=== PATIENT | male | born 1945 | race Hispanic/Latino ===

== ENCOUNTER 2018-10-22 08:30 | Observation (INO) | payer MEDICARE, OTHER ==
--- NOTE | 2018-10-22 09:21 | Emergency Department Report ---
HPI - General Chief Complaint: GI Bleed Time Seen by Provider: 10/22/18 08:54 - HPI HPI: 73-year-old -Macanese male presents to the emergency department from home with a complaint of rectal bleeding. The patient has a past medical history of hypertension, kui-xysseaj-szaglpaop diabetes and has a history of diverticulosis with previous GI bleeds. The patient was here last week for this rectal bleeding. At first he was going to be taken by IR embolization of a bleed suspected at the ileocolic region but the bleeding had stopped at that point. He then went for a colonoscopy with polypectomy. He was discharged home about 3 days ago and told to return to the emergency department with any return of his rectal bleeding. He denies any fever, abdominal pain, rectal pain. He has not taken anything for her symptoms prior to presentation. He goes to [facility] for PCP and follows with [facility]. ED Past Medical Hx - Past Medical History Previous Medical History?: Yes Hx Hypertension: Yes Hx CVA: Yes (1997, erectile dysfunction his only deficit) Hx Congestive Heart Failure: No Hx Diabetes: Yes (diet controlled at this time) Hx Pulmonary Embolism: No Hx Liver Disease: No Hx Renal Disease: Yes (chronic renal insufficiency) Hx Sickle Cell Disease: No Hx Arthritis: No Hx Seizures: No Hx Kidney Stones: No Hx Psychiatric Treatment: No Hx Asthma: No Hx Tuberculosis: No Additional medical history: Enlarged prostate - Surgical History Additional Surgical History: neck surgery 1988, back surgery - Social History Smoking Status: Former Smoker - Medications Home Medications: Home Medications Medication Instructions Recorded Confirmed Last Taken Type Atenolol/Chlorthalidone [Tenoretic 1 tab PO QDAY 07/18/16 10/17/18 07/17/16 History 100-25] Lisinopril [Zestril TAB] 40 mg PO QDAY 07/18/16 10/17/18 07/17/16 History Multivitamin Tab [Multiple Vitamin 1 each PO QDAY 07/18/16 10/17/18 07/17/16 History TAB (Theragran)] NIFEdipine XL [Procardia Xl] 90 mg PO QDAY 07/18/16 10/17/18 07/17/16 History Ferrous Gluconate [Ferrous 324 mg PO BID #60 tablet 10/20/18 Unknown Rx Gluconate 324 MG] ED Review of Systems ROS: Stated complaint: BLOOD IN STOOL Other details as noted in HPI Comment: All other systems reviewed and negative Constitutional: denies: chills, fever Eyes: denies: eye pain, vision change ENT: denies: ear pain, throat pain Respiratory: denies: cough, shortness of breath Cardiovascular: denies: chest pain, palpitations Gastrointestinal: other (rectal bleeding). denies: vomiting Genitourinary: denies: dysuria, discharge Musculoskeletal: denies: back pain, arthralgia Skin: denies: rash, lesions Neurological: denies: headache, weakness Physical Exam - Physical Exam Vital Signs: Vital Signs 10/22/18 08:44 Temperature 98.4 F Pulse Rate 82 Respiratory 16 Rate Blood Pressure 154/88 O2 Sat by Pulse 98 Oximetry Physical Exam: GENERAL: The patient is well-developed well-nourished. HENT: Normocephalic. Atraumatic. Patient has moist mucous membranes. EYES: Extraocular motions are intact. NECK: Supple. Trachea is midline. CHEST/LUNGS: Clear to auscultation. There is no respiratory distress noted. HEART/CARDIOVASCULAR: Regular. There is no tachycardia. There is no murmur. ABDOMEN: Abdomen is soft, nontender. Patient has normal bowel sounds. There is no abdominal distention. SKIN: Skin is warm and dry. NEURO: The patient is awake, alert, and oriented. The patient is cooperative. The patient has no focal neurologic deficits. The patient has normal speech. MUSCULOSKELETAL: There is no tenderness or deformity. There is no evidence of acute injury. RECTAL: No visible external lesions or hemorrhoids. There is gross blood that is also positive on guaiac testing. ED Course Vital Signs 10/22/18 08:44 Temperature 98.4 F Pulse Rate 82 Respiratory 16 Rate Blood Pressure 154/88 O2 Sat by Pulse 98 Oximetry - Consultations Consultation #1: 10/22/18 11:15 I spoke with the field servicer program professional for [facility], Dr. Tong, who recommends the patient be admitted for an observational stay to start secondary to a return of his rectal bleeding with his recent history. They will be happy to see the patient has a consult. ED Medical Decision Making - Lab Data Result diagrams: 10/22/18 09:48 10/22/18 09:48 - Medical Decision Making Patient presents with one episode of rectal bleeding a few days ago and another prior to arrival this morning. He has a history of diverticular bleeds and was recently here for possible embolization and had a colonoscopy. His hemoglobin today is 10.7. He has some chronic kidney disease that appears consistent with previous visits. Vital signs stable. I spoke with GI who recommends observational stay. Patient accepted for admission by the hospitalist service. - Differential Diagnosis diverticulosis, malignancy, hemorrhoids, ulcer Critical Care Time: No Critical care attestation.: If time is entered above; I have spent that time in minutes in the direct care of this critically ill patient, excluding procedure time. ED Disposition Clinical Impression: GI bleed Qualifiers: GI bleed type/associated pathology: unspecified gastrointestinal hemorrhage type Qualified Code(s): K92.2 - Gastrointestinal hemorrhage, unspecified HTN (hypertension) Qualifiers: Hypertension type: essential hypertension Qualified Code(s): I10 - Essential (primary) hypertension Disposition: -09 OP ADMIT IP TO THIS HOSP Is pt being admited?: Yes Condition: Fair Instructions: Hypertension (ED) Referrals: ALFREDITO DOMINGUEZ MD [Primary Care Provider] - 3-5 Days Forms: Accompanied Note Time of Disposition: 10:35
[2018-10-22 10:11] LABS: Basophils # (Auto) 0.1 K/mm3 (0.0-0.1); Basophils % (Auto) 1.2 % (0.0-1.8); Eosinophils # (Auto) 0.2 K/mm3 (0.0-0.4); Eosinophils % (Auto) 2.7 % (0.0-4.3); Hematocrit 31.1 % (35.5-45.6); Hemoglobin 10.7 gm/dl (11.8-15.2); Lymphocytes # (Auto) 1.8 K/mm3 (1.2-5.4); Lymphocytes % (Auto) 27.7 % (13.4-35.0); Mean Corpuscular HGB Conc 34 % (32-34); Mean Corpuscular Volume 85 fl (84-94); Monocytes # (Auto) 0.5 K/mm3 (0.0-0.8); Monocytes % (Auto) 7.4 % (0.0-7.3); Platelet Count 261 K/mm3 (140-440); Red Blood Count 3.65 M/mm3 (3.65-5.03); Red Cell Distribution Width 17.6 % (13.2-15.2)
[2018-10-22 10:22] LABS: INR 0.91 (0.87-1.13)
[2018-10-22 10:23] LABS: Partial Thromboplastin Time 29.2 Sec. (24.2-36.6)
[2018-10-22 10:31] LABS: Albumin 3.6 g/dL (3.9-5); Calcium 8.5 mg/dL (8.4-10.2)
--- NOTE | 2018-10-22 10:38 | History and Physical Report ---
History of Present Illness Date of examination: 10/22/18 Date of admission: 10/22/18 Chief complaint: rectal bleed History of present illness: 73-year-old -English male with h/o past medical history of hypertension, [id number]-mdujoqdpm diabetes and has a history of diverticulosis with previous GI bleeds presents to the emergency department from home with a complaint of rectal bleeding. The patient was here last week for this rectal bleeding and was going to be taken by IR embolization of a bleed suspected at the ileocolic region but the bleeding had stopped at that point. He was then went for a colonoscopy with polypectomy was discharged home. Today he came back as he noticed gross blood with stool, H/H in the ER stable. He denies any fever, abdo lisa pain, rectal pain. he being admitted for further evaluation and management. Past History Past Medical History: diabetes, hypertension, stroke Past Surgical History: Other (Neck surgery, back surgery, hemorrhoidectomy) Social history: . denies: smoking, alcohol abuse, prescription drug abuse Family history: diabetes, hypertension Review of Systems Constitutional: no weight loss, no weight gain, no fever, no chills Ears, nose, mouth and throat: no ear pain, no ear discharge, no decreased hearing, no nose pain Cardiovascular: no chest pain, no orthopnea, no palpitations, no edema, no syncope, no lightheadedness, no shortness of breath Respiratory: no cough, no cough with sputum, no excessive sputum, no hemoptysis, no shortness of breath Gastrointestinal: BRBPR, no abdominal pain, no nausea, no vomiting, no diarrhea, no early satiety, no heartburn, no indigestion Genitourinary Male: no hematuria, no flank pain, no discharge, no urinary frequency, no urinary hesitancy Rectal: no pain, no incontinence, no itching, no hemorrhoids Musculoskeletal: no neck stiffness, no neck pain, no shooting arm pain, no arm numbness/tingling, no low back pain, no shooting leg pain Integumentary: no rash, no pruritis, no redness Neurological: no head injury, no transient paralysis, no paralysis, no weakness, no tingling Psychiatric: no anxiety, no memory loss, no change in sleep habits, no sleep disturbances, no insomnia, no hypersomnia, no change in appetite, no change in libido, no suicidal ideation Endocrine: no cold intolerance, no heat intolerance, no polyphagia, no excessive thirst, no polydipsia, no polyuria, no excessive sweating Hematologic/Lymphatic: no easy bruising, no easy bleeding, no lymphedema Allergic/Immunologic: no urticaria, no wheezing, no persistent infections, no anaphylaxis, no angioedema Medications and Allergies Allergies Allergy/AdvReac Type Severity Reaction Status Date / Time No Known Allergies Allergy Verified 10/22/18 08:51 Home Medications Medication Instructions Recorded Confirmed Last Taken Type Multivitamin Tab [Multiple Vitamin 1 each PO QDAY 07/18/16 10/22/18 10/21/18 09:00 History TAB (Theragran)] Ferrous Gluconate [Ferrous 324 mg PO BID #60 tablet 10/20/18 10/22/18 10/21/18 09:00 Rx Gluconate 324 MG] Pantoprazole [Protonix] 40 mg PO QDAY #30 tablet 10/23/18 Unknown Rx Exam - Physical Exam Narrative exam: General appearance: Present: mild distress - EENT Eyes: Present: PERRL ENT: hearing intact, clear oral mucosa - Neck Neck: Present: supple, normal ROM - Respiratory Respiratory effort: normal Respiratory: bilateral: CTA - Cardiovascular Heart Sounds: Present: S1 & S2. Absent: rub, click - Extremities Extremities: pulses symmetrical, No edema Peripheral Pulses: within normal limits - Abdominal General gastrointestinal: Present: soft, non-tender, non-distended, normal bowel sounds Male genitourinary: Present: normal - Integumentary Integumentary: Present: clear, warm, dry - Musculoskeletal Musculoskeletal: gait normal, strength equal bilaterally - Psychiatric Psychiatric: appropriate mood/affect, intact judgment & insight - Neurologic Neurologic: CNII-XII intact, moves all extremities - Constitutional Vitals: Temp Pulse Resp BP Pulse Ox 98.4 F 82 16 154/88 98 10/22/18 08:44 10/22/18 08:44 10/22/18 08:44 10/22/18 08:44 10/22/18 08:44 Results - Labs CBC & Chem 7: 10/23/18 07:08 10/23/18 07:08 Labs: Abnormal lab results 10/22/18 10/22/18 Range/Units 09:48 09:48 Hgb 10.7 L (11.8-15.2) gm/dl Hct 31.1 L (35.5-45.6) % RDW 17.6 H (13.2-15.2) % Eaton % (Auto) 7.4 H (0.0-7.3) % Creatinine 1.6 H (0.8-1.5) mg/dL Glucose 110 H (75-100) mg/dL Albumin 3.6 L (3.9-5) g/dL Assessment and Plan /Acute GI bleed: Admit to medicine, GI Bleeding protocol: ppi therapy, serial CBC, HGB stable at this time, no transfusion at this time, GI consulted in ED, Endoscopy as per GI team, follow CT Angio Abdomen/Pelvis, hold aspirin/nsaid therpay / HTN (hypertension) monitor bp q shift, IV hydralazine prn, supportive care. hold home BP meds / Diabetes, diet controlled SSI insulin, accu check q6h /Anemia with Fe deficiency monitor H/h, replete Fe / DVT prophylaxis SCD to BLE while in bed, Radiology data: CTA abdomen/pelvis: No contrast extravasation seen on CT imaging to indicate active bleeding. Aortoiliac atherosclerotic disease. No aneurysm or significant branch vessel stenosis seen. Unchanged diverticulosis. No diverticulitis. Unchanged fat-containing inguinal hernia is a small bowel containing tiny umbilical hernia.
[2018-10-22] MEDS ORDERED: MORPHINE IV PRN (10:39)
[2018-10-22] MEDS ORDERED: ZOFRAN IV PRN (10:39)
[2018-10-22] MEDS ORDERED: TYLENOL PO PRN (10:39)
[2018-10-22] MEDS ORDERED: SODIUM CHLORIDE FLUSH SYRINGE 10 ML IV PRN (10:39)
[2018-10-22] MEDS ORDERED: D5NS 1,000 ML IV SCH (11:00)
[2018-10-22] MEDS: PEPCID IV SCH ×2 (11:43→21:19)
--- NOTE | 2018-10-22 13:59 | Cat Scan Report ---
PROCEDURE: CT ANGIO ABDOMEN PELVIS TECHNIQUE: CT angiography of the abdomen and pelvis performed. Images were obtained after administra tion of IV contrast. Axial images and coronal and sagittal reformatted images were obtained. HISTORY: gi bleed COMPARISON: 10/17/2018 FINDINGS: There is some atelectasis at the left base which is unchanged. The visualized spleen, pancreas, adrenal glands and kidneys demonstrate no significant abnormality. There is mild fatty infiltration of the liver. There are multiple renal cysts. There are aortoiliac atherosclerotic calcifications. There is no abdominal aortic aneurysm. There are atherosclerotic calcifications at celiac, SMA and left renal artery origins. No significant stenosis seen, however. There is no contrast extravasation seen within bowel or colon. There is diverticulosis throughout the colon. There is no diverticulitis seen. The appendix is normal. Bladder is unremarkable. There are unchanged fat-containing inguinal hernias bilaterally. Minimal umbilical hernia with small bowel unchanged and not causing obstruction. There are lumbar degenerative changes postoperative changes. IMPRESSION: No contrast extravasation seen on CT imaging to indicate active bleeding. Aortoiliac atherosclerotic disease. No aneurysm or significant branch vessel stenosis seen. Unchanged diverticulosis. No diverticulitis. Unchanged fat-containing inguinal hernia is a small bowel containing tiny umbilical hernia. This document is electronically signed by Sharda Benito MD., Oct 22 2018 01:57:23 PM ET
[2018-10-22 15:11] LABS: Hematocrit 33.2 % (35.5-45.6); Hemoglobin 11.1 gm/dl (11.8-15.2)
--- NOTE | 2018-10-22 18:55 | Consultation ---
REFERRING PHYSICIAN: Opal Riojas MD INDICATION: 1. Anemia. 2. Gastrointestinal bleed. HISTORY OF PRESENT ILLNESS: The patient is a 73-year-old black male presents with GI bleed. The patient had a recent admission when he presented for GI bleed. It was felt the bleeding was from the ileocolonic region and attempted IR embolization, failed as the patient had stopped at the time of that procedure. The patient subsequently had a colonoscopy approximately 5 days ago with polypectomy and old blood, but no obvious signs of active bleeding. The patient subsequently was discharged 3 days ago. The patient presents now with reported two dark bloody stools over the last 2-3 hours. He reports no hematemesis. Denies any NSAIDs or aspirin. The patient was evaluated in the Emergency Room where he was noted to have heme positive maroon stool and subsequently admitted and GI consulted. The patient denies any other specific problems or complaints. PAST MEDICAL HISTORY: 1. Hypertension. 2. High cholesterol. MEDICATIONS: Reviewed and updated in chart. ALLERGIES: No known drug allergies. SOCIAL HISTORY: Denies alcohol, tobacco or drug abuse. FAMILY HISTORY: Negative for colon cancer, IBD, or liver disease. REVIEW OF SYSTEMS: GENERAL: Reports mild weakness. HEENT: No visual complaints or tinnitus. PULMONARY: No shortness of breath. No cough. No chest pain. GASTROINTESTINAL: Reports rectal bleeding. All points of 13-point review of systems otherwise negative. PHYSICAL EXAMINATION: VITAL SIGNS: Temperature of 98.5, pulse 65, respiration 18, blood pressure 152/82. GENERAL: Fairly nourished male, in no acute distress. HEENT: Pupils equal, round and reactive. PULMONARY: Clear to auscultation bilaterally. CARDIOVASCULAR: Regular rhythm. Normal S1, S2. ABDOMEN: Positive bowel sounds, soft. SKIN: No obvious rashes. LABORATORY DATA: Pertinent for white count of 6.5, hemoglobin and hematocrit of 10.7 and 31.1, platelet count of 261. Coags within normal limits. Chem-7 within normal limits except for creatinine of 1.6. LFTs within normal limits. ASSESSMENT AND PLAN: A 73-year-old male, recent admission for what was felt to be a probable right-sided diverticular bleed. We fail angio and then colonoscopy with polyp removal, but no obvious bleeding at that time. The patient was discharged 3 days ago, now presents with 2-3 hours of 2 bouts of dark stool. The patient's H and H have dropped slightly from 11 when he was recently discharged and now it is 10.7. He reports no bleeding at this time. Management is noted below. PLAN: 1. We will follow hematocrit and transfuse as needed. 2. Clear liquid diet now with plans to advance based on progress. 3. CTA now to rule out active bleeding. 4. No plans for repeat colonoscopy at this time. 5. We will follow further recommendation based on progress. JOB# [id number] CAB/NTS
[2018-10-22] MEDS: SODIUM CHLORIDE FLUSH SYRINGE 10 ML IV SCH (21:21)
[2018-10-22 21:35] LABS: Hematocrit 29.4 % (35.5-45.6); Hemoglobin 10.2 gm/dl (11.8-15.2)
[2018-10-23 07:55] LABS: Basophils % (Auto) 0.4 % (0.0-1.8); Eosinophils # (Auto) 0.1 K/mm3 (0.0-0.4); Eosinophils % (Auto) 2.1 % (0.0-4.3); Hemoglobin 11.5 gm/dl (11.8-15.2); Lymphocytes # (Auto) 2.3 K/mm3 (1.2-5.4); Lymphocytes % (Auto) 32.5 % (13.4-35.0); Mean Corpuscular HGB Conc 35 % (32-34); Mean Corpuscular Volume 83 fl (84-94); Monocytes # (Auto) 0.5 K/mm3 (0.0-0.8); Monocytes % (Auto) 7.2 % (0.0-7.3); Platelet Count 295 K/mm3 (140-440); Red Blood Count 3.99 M/mm3 (3.65-5.03); Red Cell Distribution Width 17.5 % (13.2-15.2)
[2018-10-23 08:17] LABS: Calcium 9.1 mg/dL (8.4-10.2)
[2018-10-23] MEDS: SODIUM CHLORIDE FLUSH SYRINGE 10 ML IV SCH (09:13)
[2018-10-23] MEDS: PEPCID IV SCH (09:14)
--- NOTE | 2018-10-23 11:05 | Gastroenterology Progress Note ---
Assessment and Plan 1.recurrent LGIB -H/H 11.5/33.0-trending up -no active signs of bleeding -CTA 10/17 showed cecal extravasation from right sided diverticulosis with attempted embolization by IR, however the bleeding stopped and embolization could not be completed -repeat CTA yesterday did not show active bleeding -s/p colonoscopy 10/19 that revealed: Few small diverticula in the terminal ileum with no blood seen in the TI * Moderate amount of dark red blood throughout the proximal and mid colon (it was not in the rectum or sigmoid colon at the start of the procedure). No active bleeding * Scattered diverticulosis in the ascending, transverse, descending/sigmoid colon * 5mm sessile polyp in the cecum by the IC valve, removed with cold snare polypectomy * Enlarged/lipomatous IC valve, biopsied * 2mm sessile polyp in the ascending colon, removed with removed with cold biopsy polypectomy * 2 polyps in the descending colon, semi-sessile, 3mm and 5mm in size, removed with cold snare polypectomy * No other abnormalities seen, though blood limited views -etiology-most likely diverticular in nature -clinically, patient is stable. Denies abd pain or N/V. -okay to resume diet -continue PPI and supportive care -if no further bleeding, patient okay to be d/c per GI standpoint with f/u in clinic in ~2 weeks -If active re-bleed then recall IR for another attempted embolization -will sign off, please call if needed Subjective Date of service: 10/23/18 Principal diagnosis: rectal bleeding Interval history: Patient resting in bed this am w/o acute distress. No active signs of bleeding overnight or this am. States he had a BM this am with a small amount of dark old blood. Denies abd pain or N/V. Objective - Constitutional Vitals: Temp Pulse Resp BP Pulse Ox 97.8 F 63 18 142/77 98 10/23/18 07:36 10/23/18 07:36 10/23/18 07:36 10/23/18 07:36 10/23/18 07:36 General appearance: no acute distress - Respiratory Respiratory: bilateral: CTA - Cardiovascular Rhythm: regular - Gastrointestinal General gastrointestinal: Present: soft, non-tender, non-distended, normal bowel sounds - Neurologic Neurological: alert and oriented x3 - Labs CBC & Chem 7: 10/23/18 07:08 10/23/18 07:08 Labs: Laboratory Results - last 24 hr 10/22/18 10/22/18 10/22/18 14:51 16:23 21:13 WBC RBC Hgb 11.1 L 10.2 L Hct 33.2 L 29.4 L MCV MCH MCHC RDW Plt Count Lymph % (Auto) Knott % (Auto) Eos % (Auto) Baso % (Auto) Lymph # Knott # Eos # Baso # Seg Neutrophils % Seg Neutrophils # Sodium Potassium Chloride Carbon Dioxide Anion Gap BUN Creatinine Estimated GFR BUN/Creatinine Ratio Glucose POC Glucose 109 H Calcium 10/22/18 10/23/18 10/23/18 21:33 07:08 07:08 WBC 7.2 RBC 3.99 Hgb 11.5 L Hct 33.0 L MCV 83 L MCH 29 MCHC 35 H RDW 17.5 H Plt Count 295 Lymph % (Auto) 32.5 Knott % (Auto) 7.2 Eos % (Auto) 2.1 Baso % (Auto) 0.4 Lymph # 2.3 Knott # 0.5 Eos # 0.1 Baso # 0.0 Seg Neutrophils % 57.8 Seg Neutrophils # 4.2 Sodium 139 Potassium 4.0 Chloride 99.8 Carbon Dioxide 26 Anion Gap 17 BUN 9 Creatinine 1.5 Estimated GFR 46 BUN/Creatinine Ratio 6 Glucose 102 H POC Glucose 117 H Calcium 9.1 10/23/18 07:18 WBC RBC Hgb Hct MCV MCH MCHC RDW Plt Count Lymph % (Auto) Knott % (Auto) Eos % (Auto) Baso % (Auto) Lymph # Knott # Eos # Baso # Seg Neutrophils % Seg Neutrophils # Sodium Potassium Chloride Carbon Dioxide Anion Gap BUN Creatinine Estimated GFR BUN/Creatinine Ratio Glucose POC Glucose 99 Calcium
[2018-10-23] MEDS ORDERED: HumuLIN R SUB-Q SCH ×2 (11:30→12:00)
--- NOTE | 2018-10-23 13:30 | Discharge Summary ---
Providers - Providers Date of Admission: 10/22/18 12:06 Date of discharge: 10/23/18 Attending physician: JON THORPE 10/22/18 10:39 Consult to Physician [CONS] Routine Comment: Consulting Provider: DIANE MCMAHAN Physician Instructions: Reason For Exam: rectal bleed [facility] Condition: Fair Pertinent studies: Abdomen/pelvis CTA Hospital course: 73-year-old -French male with h/o past medical history of hypertension, wov-qdubjgr-elcqnzlif diabetes and has a history of diverticulosis with previous GI bleeds presented to the emergency department from home with a complaint of rectal bleeding. The patient was here last week for this rectal bleeding and was going to be taken by IR embolization of a bleed suspected at the ileocolic region but the bleeding had stopped at that point. He was then went for a colonoscopy with polypectomy was discharged home. This time he came back as he noticed gross blood with stool, H/H in the ER stable. He denied any fever, abdominal pain, rectal pain. He was admitted for further evaluation and management. he was evaluated by GI, followed h/h, GI recommended no further procedure. Patient was then discharged home with outpt GI followup. Radiology data: CTA abdomen/pelvis: No contrast extravasation seen on CT imaging to indicate active bleeding. Aortoiliac atherosclerotic disease. No aneurysm or significant branch vessel stenosis seen. Unchanged diverticulosis. No diverticulitis. Unchanged fat-containing inguinal hernia is a small bowel containing tiny umbilical hernia. Discharge diagnosis: /Acute GI bleed: likely diverticular Admited to medicine with GI Bleeding protocol: given ppi therapy, monitored serial CBC, HGB stable at this time, no need for transfusion, GI consulted and recommended outpt followup, normal CT Angio Abdomen/Pelvis, held aspirin/nsaid therapy / HTN (hypertension) monitored bp q shift, ordered for IV hydralazine prn, held home BP meds / Diabetes, diet controlled managed with SSI insulin, accu check q6h /Anemia with Fe deficiency monitored H/h, repleted Fe / DVT prophylaxis SCD to BLE while in bed, Disposition: TO HOME OR SELFCARE Time spent for discharge: 34 minutes Core Measure Documentation - Palliative Care Palliative Care/ Comfort Measures: Not Applicable - Core Measures Any of the following diagnoses?: none Exam - Physical Exam Narrative exam: General appearance: Present: mild distress - EENT Eyes: Present: PERRL ENT: hearing intact, clear oral mucosa - Neck Neck: Present: supple, normal ROM - Respiratory Respiratory effort: normal Respiratory: bilateral: CTA - Cardiovascular Heart Sounds: Present: S1 & S2. Absent: rub, click - Extremities Extremities: pulses symmetrical, No edema Peripheral Pulses: within normal limits - Abdominal General gastrointestinal: Present: soft, non-tender, non-distended, normal bowel sounds Male genitourinary: Present: normal - Integumentary Integumentary: Present: clear, warm, dry - Musculoskeletal Musculoskeletal: gait normal, strength equal bilaterally - Psychiatric Psychiatric: appropriate mood/affect, intact judgment & insight - Neurologic Neurologic: CNII-XII intact, moves all extremities - Constitutional Vitals: Temp Pulse Resp BP Pulse Ox 97.8 F 63 18 142/77 98 10/23/18 07:36 10/23/18 12:45 10/23/18 12:45 10/23/18 07:36 10/23/18 12:45 Plan Activity: advance as tolerated Weight Bearing Status: Weight Bear as Tolerated Diet: other (high fibre diet) [facility] Care Provider[facility] - 3-5 Days DIANE MCMAHAN MD [Staff Physician] - 7 Days Forms: Accompanied Note Prescriptions: Pantoprazole [Protonix] 40 mg PO QDAY #30 tablet
[2018-10-23 14:05] VITALS: BP 109/80
== END 2018-10-23 14:35 | disposition home or self-care (01) ==
LOC: ED 08:30 → 2B-ACE 12:06
PROVIDERS: ADMIT Internal Medicine; ATTEND Internal Medicine
DX: K92.2 Gastrointestinal hemorrhage, unspecified (principal); I12.9 Hypertensive chronic kidney disease with stage 1 through stage 4 chronic kidney disease, or unspecified chronic kidney disease; E11.22 Type 2 diabetes mellitus with diabetic chronic kidney disease; N18.9 Chronic kidney disease, unspecified; D50.9 Iron deficiency anemia, unspecified; Z86.73 Personal history of transient ischemic attack (TIA), and cerebral infarction without residual deficits; Z98.890 Other specified postprocedural states; Z87.891 Personal history of nicotine dependence
CPT/HCPCS: 36415; 74174; 80048; 80053; 82962; 85014; 85018; 85025; 85610; 85730; 86850; 86900; 86901; 87116; 96374; 96376; 99284; G0378; Q9967

== ENCOUNTER 2020-12-04 05:44 | Observation (INO) | payer MEDICARE, OTHER ==
[2020-12-04] MEDS ORDERED: SODIUM CHLORIDE 0.9% 1000 ML 1,000 ML IV ONE (06:52)
[2020-12-04] MEDS ORDERED: MORPHINE 4 MG/1 ML INJ IV ONE (06:53)
[2020-12-04] MEDS ORDERED: ONDANSETRON 4 MG/2 ML INJ IV ONE (06:53)
[2020-12-04] MEDS ORDERED: INSULIN REGULAR, HUMAN 100 UNITS/1 ML IV ONE (06:53)
--- NOTE | 2020-12-04 06:59 | Emergency Department Report ---
ED Back Pain/Injury HPI - General Chief Complaint: Hyperglycemia Stated Complaint: HIGH BLOOD SUGAR Time Seen by Provider: 12/04/20 06:45 Source: patient, EMS, old records reviewed Limitations: No Limitations - History of Present Illness Initial Comments: Chief complaint: "I have back spasms. My sugar is high." HPI: This is a 75-year-old male with history of hypertension, non -insulin-dependent diabetes, GI bleed, diverticulosis, iron deficiency anemia, GERD, BPH, CKD who presents with high blood sugar readings at home and back spasms. 2 days ago he experienced left lower back spasms. No trauma. Pain is sharp gripping. Worse with movement. He has pain with movement and walking. He denies fecal or urinary incontinence. Denies new leg weakness. He has been compliant with glipizide medication. He takes glipizide 5 mg daily. He does not take insulin. Patient arrived via EMS. MD Complaint: back pain -: Gradual, days(s) (2 days ago) Similar Symptoms Previously: Yes Place: home Radiation: flank (Left flank) Severity: severe Severity scale (0 -10): 10 Quality: sharp Consistency: constant Improves With: other (Sitting still) Worsens With: movement, walking Context: other (Remote history of back pain) Associated Symptoms: other (Extreme thirst dry mouth) - Related Data Home Medications Medication Instructions Recorded Confirmed Last Taken Albuterol Sulfate [Proventil Hfa] 6.7 gm IH QDAY 12/04/20 12/04/20 Unknown Atenolol [Tenormin] 100 mg PO DAILY 12/04/20 12/04/20 Unknown AtorvaSTATin [Lipitor] 40 mg PO QHS 12/04/20 12/04/20 Unknown Ezetimibe [Zetia] 10 mg PO QDAY 12/04/20 12/04/20 Unknown Finasteride [Proscar] 5 mg PO QDAY 12/04/20 12/04/20 Unknown Losartan Potassium 100 mg PO QDAY 12/04/20 12/04/20 Unknown Sildenafil Citrate [Viagra] 100 mg PO QDAY PRN 12/04/20 12/04/20 Unknown Spironolactone [Aldactone] 50 mg PO QDAY 12/04/20 12/04/20 Unknown glipiZIDE [Glucotrol] 10 mg PO QDAY 12/04/20 12/04/20 Unknown hydroCHLOROthiazide [HCTZ] 25 mg PO QDAY 12/04/20 12/04/20 Unknown Allergies Allergy/AdvReac Type Severity Reaction Status Date / Time No Known Allergies Allergy Verified 10/22/18 08:51 ED Review of Systems ROS: Stated complaint: HIGH BLOOD SUGAR Other details as noted in HPI Comment: All other systems reviewed and negative Constitutional: denies: fever, malaise Respiratory: denies: cough, shortness of breath Cardiovascular: denies: chest pain Endocrine: increased thirst, increased urine Musculoskeletal: back pain. denies: joint swelling, arthralgia, myalgia ED Past Medical Hx - Past Medical History Previous Medical History?: Yes Hx Hypertension: Yes (06/06/1979) Hx CVA: Yes (1997, erectile dysfunction his only deficit) Hx Congestive Heart Failure: No Hx Diabetes: Yes (diet controlled at this time) Hx Pulmonary Embolism: No Hx GERD: Yes Hx Liver Disease: No Hx Renal Disease: Yes (chronic renal insufficiency) Hx Sickle Cell Disease: No Hx Arthritis: No Hx Seizures: No Hx Kidney Stones: No Hx Psychiatric Treatment: No Hx Asthma: No Hx Tuberculosis: No Additional medical history: Enlarged prostate - Surgical History Past Surgical History?: Yes Additional Surgical History: neck surgery 1988, back surgery - Social History Smoking Status: Never Smoker Substance Use Type: None - Medications Home Medications: Home Medications Medication Instructions Recorded Confirmed Last Taken Type Albuterol Sulfate [Proventil Hfa] 6.7 gm IH QDAY 12/04/20 12/04/20 Unknown History Atenolol [Tenormin] 100 mg PO DAILY 12/04/20 12/04/20 Unknown History AtorvaSTATin [Lipitor] 40 mg PO QHS 12/04/20 12/04/20 Unknown History Ezetimibe [Zetia] 10 mg PO QDAY 12/04/20 12/04/20 Unknown History Finasteride [Proscar] 5 mg PO QDAY 12/04/20 12/04/20 Unknown History Losartan Potassium 100 mg PO QDAY 12/04/20 12/04/20 Unknown History Sildenafil Citrate [Viagra] 100 mg PO QDAY PRN 12/04/20 12/04/20 Unknown History Spironolactone [Aldactone] 50 mg PO QDAY 12/04/20 12/04/20 Unknown History glipiZIDE [Glucotrol] 10 mg PO QDAY 12/04/20 12/04/20 Unknown History hydroCHLOROthiazide [HCTZ] 25 mg PO QDAY 12/04/20 12/04/20 Unknown History ED Physical Exam - General Limitations: No Limitations General appearance: alert, in no apparent distress - Head Head exam: Present: atraumatic, normocephalic - Eye Eye exam: Present: normal appearance - ENT ENT exam: Present: mucous membranes moist - Neck Neck exam: Present: normal inspection, full ROM - Respiratory Respiratory exam: Present: normal lung sounds bilaterally. Absent: respiratory distress, wheezes, rales, rhonchi - Cardiovascular Cardiovascular Exam: Present: regular rate, normal rhythm, normal heart sounds. Absent: systolic murmur, diastolic murmur, rubs, gallop - GI/Abdominal GI/Abdominal exam: Present: soft, normal bowel sounds. Absent: distended, tenderness, guarding, rebound - Rectal Rectal exam: Present: deferred - Extremities Exam Extremities exam: Present: normal inspection - Back Exam Back exam: Present: tenderness, CVA tenderness (L), muscle spasm, paraspinal tenderness. Absent: CVA tenderness (R), vertebral tenderness, rash noted - Neurological Exam Neurological exam: Present: alert, oriented X3 - Psychiatric Psychiatric exam: Present: normal affect, normal mood - Skin Skin exam: Present: warm, dry, intact, normal color. Absent: rash ED Course Vital Signs 12/04/20 06:09 Temperature 98.5 F Pulse Rate 69 Respiratory 17 Rate Blood Pressure 132/86 [Left] O2 Sat by Pulse 98 Oximetry ED Medical Decision Making - Lab Data Result diagrams: 12/04/20 06:56 12/04/20 06:56 - Radiology Data Radiology results: report reviewed Patient Name: LIBERTY MANZO Gender: Male Date of : 1945 Referring Provider: WES HAMMER Organization: [facility] [place] Accession Number: [id number] Requested Date: December 04, 2020 08:02 Report Status: Final Requested Procedure: 1 Procedure Description: XR chest 1V ap Modality: XR Findings Reporting MD: Carlos Alberto Luna Dictation Time: December 04, 2020 07:30 Fern Picker: Not available Catering Sales Manager Date: CHEST 1 VIEW 12/04/2020 8:02 AM INDICATION / CLINICAL INFORMATION: hyperglycemia. COMPARISON: 07/18/2016 FINDINGS: SUPPORT DEVICES: None. HEART / MEDIASTINUM: No significant abnormality. LUNGS / PLEURA: No significant pulmonary or pleural abnormality. No pneumothorax. ADDITIONAL FINDINGS: No significant additional findings. IMPRESSION: 1. No acute findings. Signer Name: Carlos Alberto Luna MD Signed: 12/04/2020 7:30 AM Workstation Name: [id number] Patient Name: LIBERTY MANZO Gender: Male Date of : 1945 Referring Provider: WES HAMMER Organization: [facility] [place] Accession Number: [id number] Requested Date: December 04, 2020 06:54 Report Status: Final Requested Procedure: 1 Procedure Description: CT abdomen pelvis wo con Modality: CT Findings Reporting MD: Yair Bran Dictation Time: December 04, 2020 07:33 Fern Picker: Not available Catering Sales Manager Date: CT ABDOMEN AND PELVIS WITHOUT CONTRAST INDICATION / CLINICAL INFORMATION: left flank pain. TECHNIQUE: Axial CT images were obtained through the abdomen and pelvis without IV contrast. Sagittal and coronal reformatted images. All CT scans at this location are performed using CT dose reduction for ALARA by means of automated exposure control. COMPARISON: 10/17/2018 FINDINGS: LOWER CHEST: No significant abnormality. LIVER: The liver is normal size and contour. Ill-defined areas of hypoattenua tion have developed in the left hepatic lobe measuring up to 5-6 cm in greatest dimension. This is a new finding. This may represent focal geographic fatty infiltration although this is incompletely characterized on noncontrast CT. GALLBLADDER: No significant abnormality. BILE DUCTS: No significant abnormality. PANCREAS: No significant abnormality. SPLEEN: No significant abnormality. ADRENALS: No significant abnormality. RIGHT KIDNEY and URETER: Few scattered hypodensities consistent with cysts are identified. There are 2 punctate calyceal stones in the mid right kidney. No hydronephrosis. LEFT KIDNEY and URETER: 1 cm hypodensity near mid pole is consistent with a cyst. No convincing left nephrolithiasis. No hydronephrosis. STOMACH and SMALL BOWEL: No significant abnormality. COLON: There are scattered diverticula in the ascending and descending colon. No acute inflammatory changes. No obstruction, free fluid, fluid collection or free air. APPENDIX: No significant abnormality. PERITONEUM: No free fluid. No free air. No fluid collection. LYMPH NODES: No significant adenopathy. AORTA and ARTERIES: Mild calcific plaques in the aorta and iliac arteries. No aneurysm. IVC and VEINS: No significant abnormality. URINARY BLADDER: No significant abnormality. REPRODUCTIVE ORGANS: No significant abnormality. ADDITIONAL FINDINGS: Moderate to severe multilevel thoracolumbar spondylosis. No acute osseous findings are appreciated. SKELETAL SYSTEM: No significant abnormality. IMPRESSION: Ill-defined areas of hypoattenuation in the left hepatic lobe have developed as described. I suspect this could represent focal fatty infiltration although other etiologies are not excluded. Consider further evaluation with MRI with and without contrast. [facility] [address] , [address] [place] [address] P [phone] F [phone] [facility] - Report exported on Dec 04, 2020 08:21:11 0500 - Page 2 of 2 Small bilateral renal cysts. 2 punctate calyceal stones are identified in the right kidney. No obvious left nephrolithiasis or clear explanation for left flank pain. Mild diverticulosis of the colon. Advanced degenerative changes in the spine. Signer Name: Yair Bran Jr, MD Signed: 12/04/2020 7:33 AM Workstation Name: [id number] Patient Name: LIBERTY MANZO Gender: Male Date of : 1945 Referring Provider: WES HAMMER Organization: [facility] [place] Accession Number: [id number] Requested Date: December 04, 2020 06:54 Report Status: Final Requested Procedure: 1 Procedure Description: CT lumbar spine wo con Modality: CT Findings Reporting MD: Yair Bran Dictation Time: December 04, 2020 07:26 Fern Picker: Not available Catering Sales Manager Date: CT LUMBAR SPINE WITHOUT CONTRAST INDICATION: lower back pain. TECHNIQUE: Axial imaging performed through the lumbar spine without the use of contrast. Sagittal and coronal reconstructed images were also reviewed. All CT scans at this location are performed using CT dose reduction for ALARA by means of automated exposure control. COMPARISON: None FINDINGS: Alignment: Spinal alignment is normal. Bones: There is no acute osseous abnormality. Moderate to severe discogenic DJD and facet arthropathy are identified at all levels. L2-3, L4-5 and L5-S1 are most affected. Degenerative changes are noted at the SI joints as well, left greater than right. Soft tissues: No acute or significant incidental soft tissue abnormality. IMPRESSION: No evidence for acute injury to the lumbar spine. Moderate to severe multilevel spondylosis as described. Signer Name: Yair Bran Jr, MD Signed: 12/04/2020 7:26 AM Workstation Name: [id number] - Medical Decision Making 1. Severe hyperglycemia due to poorly controlled diabetes mellitus. Patient will likely be lifetime insulin therapy. IV hydration and regular insulin initiated emergency department. 2. Acute kidney injury: Vasomotor nephropathy due to volume contraction 3. Lower back pain due to severe multilevel degenerative disc disease spondylosis seen on CT scan imaging. Patient is neurologically intact. Will benefit from outpatient treatment by spine surgeon. Patient is admitted to the hospital service. Critical care attestation.: If time is entered above; I have spent that time in minutes in the direct care of this critically ill patient, excluding procedure time. ED Disposition Clinical Impression: Severe hyperglycemia due to diabetes mellitus, Acute kidney injury superimposed on CKD, Lumbar degenerative disc disease Disposition: OP ADMIT IP TO THIS HOSP Is pt being admited?: Yes Does the pt Need Aspirin: No Condition: Stable Instructions: Diabetes Mellitus Type 2 in Adults (ED)
[2020-12-04 07:14] LABS: Basophils # (Auto) 0.1 K/mm3 (0.0-0.1); Basophils % (Auto) 1.1 % (0.0-1.8); Eosinophils % (Auto) 0.5 % (0.0-4.3); Hematocrit 46.7 % (35.5-45.6); Lymphocytes # (Auto) 2.3 K/mm3 (1.2-5.4); Lymphocytes % (Auto) 25.2 % (13.4-35.0); Mean Corpuscular HGB Conc 34 % (32-34); Mean Corpuscular Volume 86 fl (84-94); Monocytes # (Auto) 0.6 K/mm3 (0.0-0.8); Monocytes % (Auto) 6.2 % (0.0-7.3); Platelet Count 202 K/mm3 (140-440); Red Blood Count 5.44 M/mm3 (3.65-5.03); Red Cell Distribution Width 14.8 % (13.2-15.2)
[2020-12-04 07:31] LABS: Alanine Aminotransferase 20 units/L (7-56); Albumin 4.1 g/dL (3.9-5); BUN/Creatinine Ratio 14; Blood Urea Nitrogen 27 mg/dL (9-20); Calcium 9.9 mg/dL (8.4-10.2)
--- NOTE | 2020-12-04 08:30 | Cat Scan Report ---
CT LUMBAR SPINE WITHOUT CONTRAST INDICATION: lower back pain. TECHNIQUE: Axial imaging performed through the lumbar spine without the use of contrast. Sagittal a nd coronal reconstructed images were also reviewed. All CT scans at this location are performed usin CT dose reduction for ALARA by means of automated exposure control. COMPARISON: None FINDINGS: Alignment: Spinal alignment is normal. Bones: There is no acute osseous abnormality. Moderate to severe discogenic DJD and facet arthropat hy are identified at all levels. L2-3, L4-5 and L5-S1 are most affected. Degenerative changes are no leon at the SI joints as well, left greater than right. Soft tissues: No acute or significant incidental soft tissue abnormality. IMPRESSION: No evidence for acute injury to the lumbar spine. Moderate to severe multilevel spondylo sis as described. Signer Name: Yair Bran Jr, MD Signed: 12/04/2020 8:26 AM Workstation Name: [id number]
--- NOTE | 2020-12-04 08:35 | XRay Report ---
CHEST 1 VIEW 12/04/2020 8:02 AM INDICATION / CLINICAL INFORMATION: hyperglycemia. COMPARISON: 07/18/2016 FINDINGS: SUPPORT DEVICES: None. HEART / MEDIASTINUM: No significant abnormality. LUNGS / PLEURA: No significant pulmonary or pleural abnormality. No pneumothorax. ADDITIONAL FINDINGS: No significant additional findings. IMPRESSION: 1. No acute findings. Signer Name: Carlos Alberto Luna MD Signed: 12/04/2020 8:30 AM Workstation Name: [id number]
--- NOTE | 2020-12-04 08:37 | Cat Scan Report ---
CT ABDOMEN AND PELVIS WITHOUT CONTRAST INDICATION / CLINICAL INFORMATION: left flank pain. TECHNIQUE: Axial CT images were obtained through the abdomen and pelvis without IV contrast. Sagittal and benavidez l reformatted images. All CT scans at this location are performed using CT dose reduction for ALARA b y means of automated exposure control. COMPARISON: 10/17/2018 FINDINGS: LOWER CHEST: No significant abnormality. LIVER: The liver is normal size and contour. Ill-defined areas of hypoattenuation have developed in t he left hepatic lobe measuring up to 5-6 cm in greatest dimension. This is a new finding. This may re present focal geographic fatty infiltration although this is incompletely characterized on noncontras t CT. GALLBLADDER: No significant abnormality. BILE DUCTS: No significant abnormality. PANCREAS: No significant abnormality. SPLEEN: No significant abnormality. ADRENALS: No significant abnormality. RIGHT KIDNEY and URETER: Few scattered hypodensities consistent with cysts are identified. There are 2 punctate calyceal stones in the mid right kidney. No hydronephrosis. LEFT KIDNEY and URETER: 1 cm hypodensity near mid pole is consistent with a cyst. No convincing left nephrolithiasis. No hydronephrosis. STOMACH and SMALL BOWEL: No significant abnormality. COLON: There are scattered diverticula in the ascending and descending colon. No acute inflammatory c hanges. No obstruction, free fluid, fluid collection or free air. APPENDIX: No significant abnormality. PERITONEUM: No free fluid. No free air. No fluid collection. LYMPH NODES: No significant adenopathy. AORTA and ARTERIES: Mild calcific plaques in the aorta and iliac arteries. No aneurysm. IVC and VEINS: No significant abnormality. URINARY BLADDER: No significant abnormality. REPRODUCTIVE ORGANS: No significant abnormality. ADDITIONAL FINDINGS: Moderate to severe multilevel thoracolumbar spondylosis. No acute osseous findin gs are appreciated. SKELETAL SYSTEM: No significant abnormality. IMPRESSION: Ill-defined areas of hypoattenuation in the left hepatic lobe have developed as described. I suspect this could represent focal fatty infiltration although other etiologies are not excluded. Consider fu rther evaluation with MRI with and without contrast. Small bilateral renal cysts. 2 punctate calyceal stones are identified in the right kidney. No obviou s left nephrolithiasis or clear explanation for left flank pain. Mild diverticulosis of the colon. Advanced degenerative changes in the spine. Signer Name: Yair Bran Jr, MD Signed: 12/04/2020 8:33 AM Workstation Name: [id number]
--- NOTE | 2020-12-04 08:54 | History and Physical Report ---
History of Present Illness Date of examination: 12/04/20 Date of admission: 2020 Chief complaint: Back pain elevated blood glucose History of present illness: 75-year-old male with a history of hypertension diabetes GI bleed in the past secondary to diverticulitis, GERD, chronic kidney disease stage III presents with 3-day history of back pain and spasms. Patient stated he has chronic back pain from surgeries on his neck and back long time ago. Patient stated he found his blood glucose to be elevated therefore decided to come to the ED. Once in the ED patient blood sugar found to be 695 and therefore was admitted for hypoglycemia control. Patient sees physician at the [facility] and also physician at [facility]. Patient was on glipizide for blood sugar. Stated that he did not check for while and felt bad decided to check it it was elevated therefore laura ent decided to come in. Patient complains of polyuria polydipsia. No dizziness no shortness of breath no chest pain. Patient was noted also to have left calf pain and tenderness. Past History Past Medical History: diabetes, GERD, hypertension. denies: arrhythmia, anemia, arthritis, CAD, cancer, COPD, dialysis, DVT, ESRD, heart failure, hepatitis, HIV/AIDS, hyperthyroidism, hyperlipidemia, hypothyroidism, liver disease, pulmonary embolism, renal failure, seizures Past Surgical History: Other (Back surgery unable to tell me exactly what kind.) Social history: single, Lives alone Family history: diabetes Medications and Allergies Allergies Allergy/AdvReac Type Severity Reaction Status Date / Time No Known Allergies Allergy Verified 10/22/18 08:51 Home Medications Medication Instructions Recorded Confirmed Last Taken Type Multivitamin Tab [Multiple Vitamin 1 each PO QDAY 07/18/16 10/22/18 10/21/18 09:00 History TAB (Theragran)] Ferrous Gluconate [Ferrous 324 mg PO BID #60 tablet 10/20/18 10/22/18 10/21/18 09:00 Rx Gluconate 324 MG] Pantoprazole [Protonix] 40 mg PO QDAY #30 tablet 10/23/18 Unknown Rx Review of Systems Constitutional: fatigue, weakness, malaise, no weight loss, no weight gain, no fever, no chills, no sweats, no night sweats, no anorexia, no lethargy, no chronic headaches, no poor appetite, no daytime sleepiness Ears, nose, mouth and throat: no tinnitis, no dental pain, no mouth pain, no hoarseness, no pain front of neck Cardiovascular: no orthopnea, no palpitations, no edema, no syncope, no claudication, no phlebitis, no high blood pressure Respiratory: no cough, no excessive sputum, no hemoptysis, no wheezing, no pleur isy, no pain, no respiratory infections, no home oxygen Gastrointestinal: nausea, heartburn, no abdominal pain, no vomiting, no diarrhea, no constipation, no hematemesis, no coffee ground emesis, no BRBPR, no melena, no hematochezia, no indigestion, no jaundice, no early satiety, no lactose intolerance Genitourinary Male: urinary frequency, no dysuria, no hematuria, no urinary hesitancy, no incontinence, no difficulties fathering child Musculoskeletal: neck stiffness, neck pain, arm numbness/tingling, low back pain, muscle cramps, no shooting arm pain, no shooting leg pain, no hot joints, no morning stiffness, no muscle weakness, no myalgias, no atrophy, no limitation of motion, no gait dysfunction, no frequent falls, no fractures, no loss of height, no prior amputations Integumentary: no deferred, no sores, no darkening of skin Neurological: parathesias, numbness, tingling, no head injury, no paralysis, no tremors, no migraines, no convulsions, no change in speech, no loss of vision Psychiatric: no sleep disturbances, no hypersomnia, no difficulties concentrating Endocrine: polydipsia, polyuria, nocturia, high blood sugars, no cold intolerance, no heat intolerance, no polyphagia, no excessive thirst, no e xcessive sweating, no flushing, no weight change, no increase in ring/shoe/hat size, no thyroid mass Hematologic/Lymphatic: no easy bleeding, no lymphedema Allergic/Immunologic: no allergic rhinitis Exam - Constitutional Vitals: Temp Pulse Resp BP Pulse Ox 98.5 F 69 17 132/86 98 12/04/20 06:09 12/04/20 06:09 12/04/20 06:09 12/04/20 06:09 12/04/20 06:09 General appearance: Present: no acute distress, well-nourished - EENT Eyes: Present: PERRL ENT: hearing intact, clear oral mucosa - Neck Neck: Present: supple, normal ROM - Respiratory Respiratory effort: normal Respiratory: bilateral: CTA - Cardiovascular Heart Sounds: Present: S1 & S2. Absent: rub, click - Extremities Extremities: pulses symmetrical, No edema Extremity abnormal: other (Calf tenderness positive Homans' sign) Peripheral Pulses: within normal limits - Abdominal General gastrointestinal: Present: soft, non-tender, non-distended, normal bowel sounds Male genitourinary: Present: normal - Integumentary Integumentary: Present: clear, warm, dry - Musculoskeletal Musculoskeletal: gait normal, strength equal bilaterally - Psychiatric Psychiatric: appropriate mood/affect, intact judgment & insight - Neurologic Neurologic: CNII-XII intact, moves all extremities Results - Labs CBC & Chem 7: 12/04/20 06:56 12/04/20 06:56 Labs: Abnormal lab results 12/04/20 12/04/20 12/04/20 Range/Units 06:05 06:56 06:56 RBC 5.44 H (3.65-5.03) M/mm3 Hgb 16.0 H (11.8-15.2) gm/dl Hct 46.7 H (35.5-45.6) % Sodium 130 L (137-145) mmol/L Potassium 5.2 H (3.6-5.0) mmol/L Chloride 91.0 L (98-107) mmol/L BUN 27 H (9-20) mg/dL Creatinine 2.0 H (0.8-1.3) mg/dL Glucose 694 H* (75-100) mg/dL POC Glucose > 600 H (70-105) mg/dL Magnesium 2.50 H (1.7-2.3) mg/dL - Imaging and Cardiology Chest x-ray: report reviewed, image reviewed CT scan - pelvis: report reviewed, image reviewed Assessment and Plan - Patient Problems (1) Pain of left calf Current Visit: Yes Status: Acute Plan to address problem: Pain in left calf questionable Homans' sign will obtain Doppler ultrasound rule out DVT. (2) Acute kidney injury superimposed on CKD Current Visit: Yes Status: Acute Plan to address problem: Patient with acute on chronic kidney disease. Baseline creatinine approximately 1.8. Patient is to today. IV hydration treat underlying hyperglycemia. (3) Severe hyperglycemia due to diabetes mellitus Current Visit: Yes Status: Acute Plan to address problem: We will start patient on 70/30 insulin. We will also place on oral hypoglycemics in anticipation for discharge and follow-up with primary care physician on Tuesday. (4) HTN (hypertension) Current Visit: No Status: Acute Qualifiers: Hypertension type: essential hypertension Qualified Code(s): I10 - Essential (primary) hypertension Plan to address problem: We will hold NIDHI. Not sure how significant renal failure was. Blood pressure 135/74 at this time. Will hold medicine. Will consider statin upon discharge.
[2020-12-04] MEDS ORDERED: DEXTROSE 50% IN WATER (25GM) 50 ML SYRINGE IV PRN ×2 (09:00→09:30)
[2020-12-04] MEDS ORDERED: MORPHINE 2 MG/1 ML INJ IV PRN (09:00)
[2020-12-04] MEDS ORDERED: ENOXAPARIN 100 MG/1 ML INJ SUB-Q SCH (09:00)
[2020-12-04] MEDS ORDERED: ACETAMINOPHEN 325 MG TAB PO PRN (09:00)
[2020-12-04] MEDS ORDERED: ONDANSETRON 4 MG/2 ML INJ IV PRN (09:00)
[2020-12-04] MEDS: INSULIN NPH/REGULAR 70/30 INJ SUB-Q SCH ×2 (09:39→17:49)
[2020-12-04] MEDS ORDERED: ENOXAPARIN 120 MG/0.8 ML INJ SUB-Q SCH (10:00)
--- NOTE | 2020-12-04 11:32 | Vascular Lab Report ---
DUPLEX DOPPLER LOWER EXTREMITY VEINS, LEFT INDICATION / CLINICAL INFORMATION: Dvt. TECHNIQUE: Duplex doppler imaging was performed through the veins of the left lower extremity using v enous compression and other maneuvers. COMPARISON: None available. FINDINGS: LEFT COMMON FEMORAL VEIN: Negative. LEFT FEMORAL VEIN: Negative. LEFT POPLITEAL VEIN: Negative. LEFT CALF VEINS: Negative. ADDITIONAL FINDINGS: None. IMPRESSION: 1. No sonographic evidence for DVT in the left lower extremity. Scribed by: Caty Marc RDMS, RVT Scribed: 12/04/2020 10:01 AM I have reviewed the images, agree with this report, and edited this report as needed. Signer Name: Carlos Alberto Luna MD Signed: 12/04/2020 11:28 AM Workstation Name: [id number]
[2020-12-04] MEDS: INSULIN REGULAR, HUMAN 100 UNITS/1 ML SUB-Q SCH ×3 (15:06→21:53)
--- NOTE | 2020-12-04 17:46 | Event Note ---
Date: 12/04/20 New onset atrial fibrillation. Happened approximately 45 minutes ago. EKG was obtained also read A. fib with rate in 140s. Patient denied any chest pain. Denied of ever having A. fib or heart problems at any time. No shortness of breath during the episode no dyspnea on exertion. Important to note patient was stable in the ED in normal sinus rhythm rate of approximately 70. Upon transfer to telemetry with stable somewhat bradycardic at 55 and some time after that developed atrial fibrillation. Will place patient on Eliquis as well as Cardizem twice daily obtain echocardiogram and cardiology consult.
[2020-12-04] MEDS: SODIUM CHLORIDE 0.9% 1000 ML 1,000 ML IV SCH (17:49)
[2020-12-04] MEDS: dilTIAZem 30 MG TAB PO SCH (18:09)
[2020-12-04 20:13] LABS: Hematocrit 47.9 % (35.5-45.6); Hemoglobin 16.4 gm/dl (11.8-15.2); Mean Corpuscular HGB Conc 34 % (32-34); Mean Corpuscular Volume 85 fl (84-94); Platelet Count 211 K/mm3 (140-440); Red Blood Count 5.65 M/mm3 (3.65-5.03); Red Cell Distribution Width 14.8 % (13.2-15.2)
[2020-12-04] MEDS: APIXABAN 5 MG TAB PO SCH (21:53)
[2020-12-04] MEDS: oxyCODONE /ACETAMINOPHEN 5-325MG TAB PO PRN (21:54)
[2020-12-05] MEDS: dilTIAZem 30 MG TAB PO SCH ×5 (00:31→23:20)
[2020-12-05 05:37] LABS: Albumin 3.3 g/dL (3.9-5); Calcium 8.8 mg/dL (8.4-10.2)
[2020-12-05] MEDS: SODIUM CHLORIDE 0.9% 1000 ML 1,000 ML IV SCH ×2 (06:33→15:06)
[2020-12-05] MEDS: oxyCODONE /ACETAMINOPHEN 5-325MG TAB PO PRN (06:35)
[2020-12-05] MEDS: INSULIN REGULAR, HUMAN 100 UNITS/1 ML SUB-Q SCH ×4 (08:11→22:50)
[2020-12-05] MEDS: APIXABAN 5 MG TAB PO SCH ×2 (11:10→22:50)
[2020-12-05] MEDS: FINASTERIDE 5 MG TAB PO SCH (11:10)
[2020-12-05] MEDS: EZETIMIBE 10 MG TAB PO SCH (11:10)
[2020-12-05] MEDS: INSULIN NPH/REGULAR 70/30 INJ SUB-Q SCH (11:11)
--- NOTE | 2020-12-05 11:23 | Consultation ---
History of Present Illness Consult date: 12/05/20 Requesting physician: OSCAR TAN Consult reason: atrial fibrillation History of present illness: Pt is a 75-year-old AA male with a hx of CKD, DM2, and prior GI bleed, who presented with complaints of back pain and high BG readings at home. He is typically followed by the OR and [facility]. Pt has a prior hx of spinal stenosis s/p surgical intervention a few years ago. Cardiology has been consulted for eval and mgmt of new onset atrial fibrillation. Pt denies a hx of AF or other arrhythmias. He was initially noted to be in SR in the 70s on tele at admission. Overnight he went into AF with RVR in the 140-150s. He was given PO Cardizem and later converted to SR around 1900. He remains in SR 60-70s on tele today. Pt denies any chest pain, SOB, palpitations, or additional cardiac complaints. He has been otherwise feeling well at home. He does not exercise regularly but denies any complaints with light activity. Pt denies EtOH and tobacco use. Past History Past Medical History: diabetes, GERD, hypertension, renal failure, other (GIB). denies: atrial fib, arrhythmia Past Surgical History: Other (spinal surgery). denies: valve replacement, CABG, PTCA Social history: single. denies: smoking, alcohol abuse Family history: diabetes Medications and Allergies Allergies Allergy/AdvReac Type Severity Reaction Status Date / Time No Known Allergies Allergy Verified 10/22/18 08:51 Home Medications Medication Instructions Recorded Confirmed Last Taken Type Albuterol Sulfate [Proventil Hfa] 6.7 gm IH QDAY 12/04/20 12/04/20 Unknown History Atenolol [Tenormin] 100 mg PO DAILY 12/04/20 12/04/20 Unknown History AtorvaSTATin [Lipitor] 40 mg PO QHS 12/04/20 12/04/20 Unknown History Ezetimibe [Zetia] 10 mg PO QDAY 12/04/20 12/04/20 Unknown History Finasteride [Proscar] 5 mg PO QDAY 12/04/20 12/04/20 Unknown History Losartan Potassium 100 mg PO QDAY 12/04/20 12/04/20 Unknown History Sildenafil Citrate [Viagra] 100 mg PO QDAY PRN 12/04/20 12/04/20 Unknown History Spironolactone [Aldactone] 50 mg PO QDAY 12/04/20 12/04/20 Unknown History glipiZIDE [Glucotrol] 10 mg PO QDAY 12/04/20 12/04/20 Unknown History hydroCHLOROthiazide [HCTZ] 25 mg PO QDAY 12/04/20 12/04/20 Unknown History Active Meds: Active Medications Acetaminophen (Acetaminophen 325 Mg Tab) 650 mg PO Q4H PRN PRN Reason: Pain MILD(1-3)/Fever >100.5/SINGH Apixaban (Apixaban 5 Mg Tab) 5 mg PO Q12HR [facility]; Protocol Last Admin: 12/05/20 11:10 Dose: 5 mg Documented by: Atorvastatin Calcium (Atorvastatin 40 Mg Tab) 40 mg PO QHS DAVID Dextrose (Dextrose 50% In Water (25gm) 50 Ml Syringe) 50 ml IV Q30MIN PRN; Protocol PRN Reason: Hypoglycemia Diltiazem HCl (Diltiazem 30 Mg Tab) 30 mg PO Q6HR [facility] Last Admin: 12/05/20 06:32 Dose: 30 mg Documented by: Ezetimibe (Ezetimibe 10 Mg Tab) 10 mg PO QDAY [facility] Last Admin: 12/05/20 11:10 Dose: 10 mg Documented by: Finasteride (Finasteride 5 Mg Tab) 5 mg PO QDAY [facility] Last Admin: 12/05/20 11:10 Dose: 5 mg Documented by: Sodium Chloride (Nacl 0.9% 1000 Ml) 1,000 mls @ 100 mls/hr IV DIRECT [facility] Last Admin: 12/05/20 06:33 Dose: 100 mls/hr Documented by: Insulin Human Isoph/Insulin Regular (Insulin Nph/Regular 70/30 Inj) 15 unit S UB-Q BIDDIAB [facility] Last Admin: 12/05/20 11:11 Dose: 15 unit Documented by: Insulin Human Regular (Insulin Regular, Human 100 Units/1 Ml) 0 units SUB-Q ACHS [facility]; Protocol Last Admin: 12/05/20 08:11 Dose: Not Given Documented by: Morphine Sulfate (Morphine 2 Mg/1 Ml Inj) 2 mg IV Q4H PRN PRN Reason: Pain, Moderate (4-6) Last Admin: 12/04/20 15:07 Dose: 2 mg Documented by: Ondansetron HCl (Ondansetron 4 Mg/2 Ml Inj) 4 mg IV Q8H PRN PRN Reason: Nausea And Vomiting Oxycodone/Acetaminophen (Oxycodone /Acetaminophen 5-325mg Tab) 1 tab PO Q6H PRN PRN Reason: Pain, Moderate (4-6) Last Admin: 12/05/20 06:35 Dose: 1 tab Documented by: Sodium Chloride (Sodium Chloride 0.9% 10 Ml Flush Syringe) 10 ml IV BID DAVID Last Admin: 12/05/20 11:14 Dose: Not Given Documented by: Sodium Chloride (Sodium Chloride 0.9% 10 Ml Flush Syringe) 10 ml IV PRN PRN PRN Reason: LINE FLUSH Review of Systems Constitutional: no fever, no chills Ears, nose, mouth and throat: no nasal congestion, no sore throat Cardiovascular: no chest pain, no orthopnea, no palpitations, no rapid/irregular heart beat, no edema, no syncope, no lightheadedness, no shortness of breath, no dyspnea on exertion, no paroxysmal nocturnal dyspnea, no claudication Respiratory: no cough, no shortness of breath, no dyspnea on exertion Gastrointestinal: no abdominal pain, no nausea, no vomiting Genitourinary Male: flank pain, no dysuria Musculoskeletal: other (back pain/spasms), no neck stiffness, no neck pain Integumentary: no rash, no wounds Neurological: no head injury, no paralysis, no weakness, no numbness, no tingling, no seizures, no syncope, no vertigo, no headaches Endocrine: no cold intolerance, no heat intolerance Hematologic/Lymphatic: no easy bruising, no easy bleeding Allergic/Immunologic: no anaphylaxis Physical Examination Last Vital Signs Temp 98.3 F 12/05/20 07:44 Pulse 58 L 12/05/20 07:44 Resp 19 12/05/20 07:44 BP 159/91 12/05/20 07:44 Pulse Ox 96 12/05/20 07:44 General appearance: no acute distress HEENT: Positive: EOMI, Normocephaly, Mucus Membranes Moist Neck: Positive: neck supple, trachea midline. Negative: JVD/HJR Cardiac: Positive: Reg Rate and Rhythm, S1/S2. Negative: Audible Murmur Lungs: Positive: clear to auscultation Neuro: Positive: Grossly Intact Abdomen: Positive: Soft. Negative: Tender Skin: Negative: Rash Musculoskeletal: No Pain Extremities: Present: upper extr. pulses, lower extr. pulses. Absent: edema Results 12/04/20 19:25 12/05/20 04:39 Cardiac Enzymes 12/05/20 Range/Units 04:39 AST 21 (5-40) units/L Coagulation 12/04/20 Range/Units 19:25 PT 13.7 (12.2-14.9) Sec. INR 1.00 (0.87-1.13) APTT 28.0 (24.2-36.6) Sec. CBC 12/04/20 Range/Units 19:25 WBC 9.6 (4.5-11.0) K/mm3 RBC 5.65 H (3.65-5.03) M/mm3 Hgb 16.4 H (11.8-15.2) gm/dl Hct 47.9 H (35.5-45.6) % Plt Count 211 (140-440) K/mm3 Comprehensive Metabolic Panel 12/04/20 12/05/20 Range/Units 19:25 04:39 Sodium 139 D (137-145) mmol/L Potassium 4.1 D (3.6-5.0) mmol/L Chloride 104.5 (98-107) mmol/L Carbon Dioxide 23 (22-30) mmol/L BUN 22 H (9-20) mg/dL Creatinine 1.8 H 1.9 H (0.8-1.3) mg/dL Glucose 75 (75-100) mg/dL Calcium 8.8 (8.4-10.2) mg/dL AST 21 (5-40) units/L ALT 19 (7-56) units/L Alkaline Phosphatase 78 (35-129) units/L Total Protein 6.7 (6.3-8.2) g/dL Albumin 3.3 L (3.9-5) g/dL - Imaging and Cardiology Echo: pending EKG: report reviewed, image reviewed - EKG Interpretation EKG: no acute changes EKG shows: atrial fibrillation EKG interpretations - Telemetry EKG Rhythm: Sinus Rhythm - EKG Supraventricular dysrhythmia: atrial fibrillation Repolarization changes or abnormalities: nonspecific abnormality, ST segment, and/or T wave Assessment and Plan Echo reviewed - EF 50-55%, asymmetric septal thickening, mild diastolic dysfxn, trace AR, trace MR, RVSP 22mmHg, trace TR. Agree with initiation of Eliquis. Do not resume ASA at discharge. Discontinue home Atenolol. Continue PO Cardizem 30mg q6h as tolerated. Pt seen in conjunction with Dr. Franco, who agrees with the assessment and plan of care. - Patient Problems (1) PAF (paroxysmal atrial fibrillation) Onset Date: ~12/04/20 Current Visit: Yes Status: Acute (2) Acute kidney injury superimposed on CKD Current Visit: Yes Status: Acute (3) HTN (hypertension) Current Visit: Yes Status: Chronic Qualifiers: Hypertension type: essential hypertension (4) DM2 (diabetes mellitus, type 2) Current Visit: Yes Status: Chronic Qualifiers: Diabetes mellitus complication status: with hyperglycemia (5) H/O: GI bleed Current Visit: Yes Status: Chronic
[2020-12-05 11:39] LABS: Albumin 3.5 g/dL (3.9-5); Calcium 8.7 mg/dL (8.4-10.2)
--- NOTE | 2020-12-05 17:48 | Progress Note ---
Assessment and Plan - Patient Problems (1) Pain of left calf Current Visit: Yes Status: Acute Plan to address problem: Pain in left calf questionable Homans' sign will obtain Doppler ultrasound rule out DVT. No DVT no calf pain has resolved. Possible cramping. (2) Acute kidney injury superimposed on CKD Current Visit: Yes Status: Acute Plan to address problem: Patient with acute on chronic kidney disease. Baseline creatinine approximately 1.8. Patient is to today. IV hydration treat underlying hyperglycemia. (3) Severe hyperglycemia due to diabetes mellitus Current Visit: Yes Status: Acute Plan to address problem: Patient blood Kos much better controlled given 70/30 insulin 15 units twice daily. Patient can follow with primary care physician outside to titrate medical management. Has been diabetic education complete. (4) HTN (hypertension) Current Visit: Yes Status: Chronic Qualifiers: Hypertension type: essential hypertension Plan to address problem: We will hold NIDHI. Not sure how significant renal failure was. Blood pressure 135/74 at this time. Will hold medicine. Will consider statin upon discharge. Well-controlled on Cardizem. (5) PAF (paroxysmal atrial fibrillation) Onset Date: ~12/04/20 Current Visit: Yes Status: Acute Plan to address problem: Patient back in sinus rhythm today after starting Cardizem. We will continue Eliquis for now. Continue Cardizem 30 mg 3 times daily follow-up with cardiology outpatient. Echocardiogram ejection fraction 50 to 60% unremarkable. Patient back in normal sinus rhythm. Discontinue aspirin discontinue other AV derek blocking agent. Subjective Date of service: 12/05/20 Principal diagnosis: Hyperglycemia, atrial fibrillation Interval history: Patient feels better today. Now back in normal sinus rhythm after initiating Cardizem. Patient is scheduled to have echocardiogram today. No chest pain no shortness of breath. Patient blood sugars have much better. Accu-Chek 111. Patient's blood sugar is gone from 6 95-1 11. Will maintain current insulin dose. Objective - Constitutional Vitals: Vital Signs - 12hr 12/05/20 12/05/20 12/05/20 06:32 06:35 07:44 Temperature 98.3 F Pulse Rate 57 L 58 L Respiratory 20 19 Rate Blood Pressure 131/73 159/91 O2 Sat by Pulse 96 Oximetry General appearance: Present: no acute distress, well-nourished - EENT Eyes: PERRL, EOM intact ENT: hearing intact, clear oral mucosa Ears: bilateral: normal - Neck Neck: supple, normal ROM - Respiratory Respiratory effort: normal Respiratory: bilateral: CTA - Breasts Breasts: normal - Cardiovascular Rhythm: regular Heart Sounds: Present: S1 & S2. Absent: gallop, rub Extremities: pulses intact, No edema, normal color, Full ROM - Gastrointestinal General gastrointestinal: Present: soft, non-tender, non-distended, normal bowel sounds - Genitourinary Male genitourinary: normal - Integumentary Integumentary: clear, warm, dry - Musculoskeletal Musculoskeletal: 1, strength equal bilaterally - Neurologic Neurologic: moves all extremities - Psychiatric Psychiatric: memory intact, appropriate mood/affect, intact judgment & insight - Labs CBC & Chem 7: 12/04/20 19:25 12/05/20 10:38 Labs: Abnormal lab results 12/04/20 12/04/20 12/04/20 Range/Units 19:25 19:25 21:18 RBC 5.65 H (3.65-5.03) M/mm3 Hgb 16.4 H (11.8-15.2) gm/dl Hct 47.9 H (35.5-45.6) % Sodium (137-145) mmol/L BUN (9-20) mg/dL Creatinine 1.8 H (0.8-1.3) mg/dL Glucose (75-100) mg/dL POC Glucose 272 H (70-105) mg/dL Total Protein (6.3-8.2) g/dL Albumin (3.9-5) g/dL 12/05/20 12/05/20 12/05/20 Range/Units 04:39 07:44 10:38 RBC (3.65-5.03) M/mm3 Hgb (11.8-15.2) gm/dl Hct (35.5-45.6) % Sodium 135 L (137-145) mmol/L BUN 22 H 21 H (9-20) mg/dL Creatinine 1.9 H 1.9 H (0.8-1.3) mg/dL Glucose 302 H (75-100) mg/dL POC Glucose 111 H (70-105) mg/dL Total Protein 6.1 L (6.3-8.2) g/dL Albumin 3.3 L 3.5 L (3.9-5) g/dL 12/05/20 12/05/20 Range/Units 11:28 16:32 RBC (3.65-5.03) M/mm3 Hgb (11.8-15.2) gm/dl Hct (35.5-45.6) % Sodium (137-145) mmol/L BUN (9-20) mg/dL Creatinine (0.8-1.3) mg/dL Glucose (75-100) mg/dL POC Glucose 343 H 345 H (70-105) mg/dL Total Protein (6.3-8.2) g/dL Albumin (3.9-5) g/dL
[2020-12-05] MEDS ORDERED: INSULIN NPH/REGULAR 70/30 INJ SUB-Q SCH (17:49)
[2020-12-06 05:57] LABS: Hematocrit 39.9 % (35.5-45.6); Hemoglobin 13.5 gm/dl (11.8-15.2); Mean Corpuscular HGB Conc 34 % (32-34); Mean Corpuscular Volume 85 fl (84-94); Platelet Count 175 K/mm3 (140-440); Red Blood Count 4.72 M/mm3 (3.65-5.03)
[2020-12-06] MEDS: dilTIAZem 30 MG TAB PO SCH ×2 (06:51→11:22)
--- NOTE | 2020-12-06 07:47 | Discharge Summary ---
Providers - Providers Date of Admission: 12/04/20 08:03 Date of discharge: 12/06/20 Attending physician: OSCAR TAN 12/04/20 17:57 Consult to Physician [CONS] Routine Comment: Consulting Provider: SHANDA BOOTHE Physician Instructions: Reason For Exam: a fib Primary care physician: BRICK TOSSER Hospitalization Condition: Good Pertinent studies: Abdominal pelvis CT scan unremarkable except for ill-defined hypoattenuation of the left hepatic lobe suggestive of fatty infiltrate. Advanced arthritis. CT scan lumbar spine advanced arthritis multilevel spondylosis Echocardiogram-normal ejection fraction 55 to 60%. Normal systolic function Doppler ultrasound -negative for DVT Hospital course: 75-year-old male originally presented to ED with acute back pain and back spasms. Patient had chronic back pain from multiple surgeries. Upon presentation was found to have blood sugar greater than 695. Patient was only on one oral hypoglycemic met for treatment. And has been noncompliant has not checked it in a while. Patient was admitted for hyperglycemia. Patient had CT scan abdomen pelvis as well as CT scan lumbar region which only showed significant arthritis as etiology for his discomfort. However on liver incidental finding was found hypoattenuation in the left hepatic lobe. This will require outpatient follow-up MRI with GI and primary care physician patient aware. On day 2 patient hospital course was complicated by an episode of A. fib with rapid ventricular rate in the 140s. Patient was placed on Cardizem 30 mg 3 times a day. Atenolol was discontinued and patient also started on Eliquis and aspirin was also discontinued as well. Patient have follow-up cardiology in 2 weeks. Patient back pain resolved. Hospital course was also complicated by left calf pain in which venous Doppler was obtained and it was negative. Pain resolved in the left calf. Disposition: DC-01 TO HOME OR SELFCARE Final Discharge Diagnosis (Prints w/discharge instructions): Atrial fibrillation with RVR uncontrolled diabetes - Discharge Diagnoses (1) Pain of left calf Status: Acute Comment: Negative ultrasound pain is resolved. (2) Acute kidney injury superimposed on CKD Status: Acute Comment: Patient with chronic kidney disease at baseline creatinine 1.8. (3) Severe hyperglycemia due to diabetes mellitus Status: Acute Comment: Patient be placed on insulin 70/30 insulin. Follow-up primary care physician for dose titration. (4) HTN (hypertension) Status: Chronic Qualifiers: Hypertension type: essential hypertension Comment: Continues to have optimal control blood pressure. (5) PAF (paroxysmal atrial fibrillation) Status: Acute Comment: We will continue Cardizem 30 mg 3 times daily and Eliquis as well. Follow-up cardiology 5 days. Core Measure Documentation - Palliative Care Palliative Care/ Comfort Measures: Not Applicable - Core Measures Any of the following diagnoses?: none Exam - Constitutional Vitals: Temp Pulse Resp BP Pulse Ox 98.4 F 77 20 128/66 98 12/06/20 03:50 12/06/20 06:51 12/06/20 03:50 12/06/20 06:51 12/06/20 03:50 General appearance: Present: no acute distress, well-nourished - EENT Eyes: Present: PERRL ENT: hearing intact, clear oral mucosa - Neck Neck: Present: supple, normal ROM - Respiratory Respiratory effort: normal Respiratory: bilateral: CTA - Cardiovascular Heart Sounds: Present: S1 & S2. Absent: rub, click - Extremities Extremities: pulses symmetrical, No edema Peripheral Pulses: within normal limits - Abdominal General gastrointestinal: Present: soft, non-tender, non-distended, normal bowel sounds Male genitourinary: Present: normal - Integumentary Integumentary: Present: clear, warm, dry - Musculoskeletal Musculoskeletal: gait normal, strength equal bilaterally - Psychiatric Psychiatric: appropriate mood/affect, intact judgment & insight - Neurologic Neurologic: CNII-XII intact, moves all extremities Plan Activity: no restrictions Weight Bearing Status: Full Weight Bearing Diet: diabetic Special Instructions: physical therapy, home health RN Follow up with: PRIMARY CARE, [Primary Care Provider] - 7 Days Prescriptions: dilTIAZem [Cardizem] 30 mg PO Q6HR #90 tablet Apixaban [Eliquis] 5 mg PO Q12HR #60 tablet AtorvaSTATin [Lipitor] 40 mg PO QHS #30 Losartan Potassium 25 mg PO QDAY #30 Insulin NPH/Regular [NovoLIN 70/30] 25 unit SUB-Q BIDDIAB #10 units
[2020-12-06] MEDS: INSULIN NPH/REGULAR 70/30 INJ SUB-Q SCH (07:53)
[2020-12-06] MEDS: INSULIN REGULAR, HUMAN 100 UNITS/1 ML SUB-Q SCH ×2 (08:00→11:23)
[2020-12-06 08:22] VITALS: BP 147/79
--- NOTE | 2020-12-06 09:14 | Progress Note ---
Assessment and Plan 75-year-old male with diabetes has proximal atrial fibrillation patient does not feel palpitations continue beta-tarsha therapy given patient's Juan Vascor of 3 continue oral anticoagulation Eliquis. Patient has chronic renal sufficiency. Follow with primary care physician at [facility] - Patient Problems (1) Acute kidney injury superimposed on CKD Current Visit: Yes Status: Acute (2) PAF (paroxysmal atrial fibrillation) Onset Date: ~12/04/20 Current Visit: Yes Status: Acute (3) CKD (chronic kidney disease) Current Visit: Yes Status: Chronic (4) DM2 (diabetes mellitus, type 2) Current Visit: Yes Status: Chronic Qualifiers: Diabetes mellitus complication status: with hyperglycemia (5) Diabetes Current Visit: No Status: Acute Subjective Date of service: 12/06/20 Principal diagnosis: Hyperglycemia, atrial fibrillation Interval history: Denies any chest pain or palpitation Objective Vital Signs Temp Pulse Pulse Resp BP BP Pulse Ox 12/06/20 07:56 98.2 F 67 20 147/79 99 12/06/20 06:51 77 128/66 12/06/20 03:50 98.4 F 69 20 128/66 98 12/05/20 23:54 98.4 F 70 18 156/53 97 12/05/20 23:20 74 156/83 12/05/20 22:00 82 12/05/20 20:42 71 18 97 12/05/20 19:57 98.4 F 71 20 156/83 97 12/05/20 16:33 98.2 F 77 19 131/79 91 - Physical Examination General: Appears Well HEENT: Positive: EOMI, Normocephaly, Mucus Membranes Moist Neck: Positive: neck supple, trachea midline. Negative: JVD/HJR Cardiac: Positive: Reg Rate and Rhythm Lungs: Positive: clear to auscultation Neuro: Positive: Grossly Intact Abdomen: Positive: Soft. Negative: Tender Skin: Negative: Rash Musculoskeletal: No Pain Extremities: Present: upper extr. pulses, lower extr. pulses. Absent: edema - Labs and Meds Cardiac Enzymes 12/05/20 Range/Units 10:38 AST 20 (5-40) units/L CBC 12/06/20 Range/Units 05:35 WBC 7.0 (4.5-11.0) K/mm3 RBC 4.72 (3.65-5.03) M/mm3 Hgb 13.5 (11.8-15.2) gm/dl Hct 39.9 D (35.5-45.6) % Plt Count 175 (140-440) K/mm3 Comprehensive Metabolic Panel 12/05/20 Range/Units 10:38 Sodium 135 L (137-145) mmol/L Potassium 4.6 (3.6-5.0) mmol/L Chloride 100.6 (98-107) mmol/L Carbon Dioxide 23 (22-30) mmol/L BUN 21 H (9-20) mg/dL Creatinine 1.9 H (0.8-1.3) mg/dL Glucose 302 H (75-100) mg/dL Calcium 8.7 (8.4-10.2) mg/dL AST 20 (5-40) units/L ALT 18 (7-56) units/L Alkaline Phosphatase 81 (35-129) units/L Total Protein 6.1 L (6.3-8.2) g/dL Albumin 3.5 L (3.9-5) g/dL - Imaging and Cardiology EKG: report reviewed, image reviewed Echo: report reviewed (Normal LV function no significant regurgitation) - Telemetry EKG Rhythm: Sinus Rhythm Repolarization changes or abnormalities: nonspecific abnormality, ST segment, and/or T wave
[2020-12-06] MEDS: FINASTERIDE 5 MG TAB PO SCH (11:22)
[2020-12-06] MEDS: EZETIMIBE 10 MG TAB PO SCH (11:22)
[2020-12-06] MEDS: APIXABAN 5 MG TAB PO SCH (11:22)
== END 2020-12-06 14:32 | disposition home or self-care (01) ==
LOC: ED 05:44 → 4A 08:03
PROVIDERS: ADMIT Internal Medicine; ATTEND Internal Medicine
DX: E11.65 Type 2 diabetes mellitus with hyperglycemia (principal); N17.9 Acute kidney failure, unspecified; M79.662 Pain in left lower leg; I12.9 Hypertensive chronic kidney disease with stage 1 through stage 4 chronic kidney disease, or unspecified chronic kidney disease; N18.9 Chronic kidney disease, unspecified; K21.9 Gastro-esophageal reflux disease without esophagitis; I48.0 Paroxysmal atrial fibrillation; R10.9 Unspecified abdominal pain; Z79.899 Other long term (current) drug therapy; Z98.890 Other specified postprocedural states; Z79.4 Long term (current) use of insulin
CPT/HCPCS: 36415; 71045; 72131; 74176; 80053; 82565; 82805; 82962; 83735; 84100; 84443; 85025; 85027; 85610; 85730; 93306; 93971; 96361; 96374; 96375; 96376; 99285; A9270; G0378; J2270; J2405; J7030; J1815